=== PATIENT | female | born 1950 | race Caucasian/White ===

== ENCOUNTER 2024-09-11 12:58 | Inpatient (IN) | payer MEDICARE ==
[~2024-09-11] VITALS: Ht 172.7 cm; Wt 97.5 kg
[2024-09-11] VITALS (26 sets, daily range): BP systolic 83–142; BP diastolic 40–78; PULSE 58–93; RESP 15–25; TEMP 96.5–98.1; O2SAT 92–98
[2024-09-11 13:43] LABS: BASOPHILS % (AUTO) 0.1 % (0-1); EOSINOPHILS % (AUTO) 0 % (0-6); HEMATOCRIT 33.5 % (35.0-45.0); HEMOGLOBIN 11.4 g/dl (12.0-16.0); LYMPHOCYTES # (AUTO) 0.8 X10'3 (1.1-4.8); LYMPHOCYTES % (AUTO) 4.1 % (21-51); MEAN CORPUSCULAR HEMOGLOBIN 32.5 PG (27.0-31.0); MEAN CORPUSCULAR VOLUME 95.6 FL (78-98); MEAN PLATELET VOLUME 8.5 FL (7.4-10.4); MONOCYTES # (AUTO) 1.2 X10'3 (0-0.9); MONOCYTES % (AUTO) 5.9 % (2-12); NEUTROPHILS # (AUTO) 17.8 X10'3 (1.8-7.7); NEUTROPHILS % (AUTO) 89.9 % (42-75); PLATELET COUNT 94 X10'3 (140-440); RED CELL DISTRIBUTION WIDTH 12.6 % (11.5-14.5); WHITE BLOOD COUNT 19.9 X10'3 (4.5-11.0)
[2024-09-11 13:55] LABS: ALBUMIN 2.6 G/DL (3.4-5.0); ANION GAP 9 (8-16); BLOOD UREA NITROGEN 19 MG/DL (7-18); BUN/CREATININE RATIO 16.1 (10.0-20.0); CALCIUM 8.3 MG/DL (8.5-10.1); CHLORIDE 105 MMOL/L (99-107); CREATININE 1.18 MG/DL (0.40-0.90); GLUCOSE 89 MG/DL (70-104); LIPASE 18 U/L (16-77); MAGNESIUM 1.9 MG/DL (1.5-2.4); SODIUM 140 MMOL/L (135-145); TOTAL CARBON DIOXIDE 26.2 MMOL/L (24-32); eCRCL 43 ML/MIN; eGFR 45 ML/MIN
[2024-09-11] MEDS ORDERED: METO25TA6 PO (15:27)
[2024-09-11] MEDS ORDERED: TAMO20TA4 PO (15:27)
[2024-09-11] MEDS ORDERED: GABA-1405 PO (15:27)
[2024-09-11] MEDS ORDERED: ipratropium/albuterol 3ml nebule NEB PRN (16:05)
[2024-09-11] MEDS ORDERED: acetaminophen 325mg tablet PO PRN (16:05)
[2024-09-11] MEDS ORDERED: HYDROmorphone/PF 0.2 MG/ML SYRINGE IV PRN (16:05)
[2024-09-11] MEDS ORDERED: potassium Cl 40MEQ/1/2NS 520ml 520 ML IV PRN (16:05)
[2024-09-11] MEDS ORDERED: HYDROmorphone inj. 0.5 MG/0.5 ML DISP.SYRIN IV PRN (16:05)
[2024-09-11] MEDS ORDERED: bisacodyl 10mg suppository rectal RC PRN (16:05)
[2024-09-11] MEDS ORDERED: magnesium sulf-water 2g/50mL 50 ML IV PRN (16:05)
[2024-09-11] MEDS ORDERED: ondansetron/PF 4mg/2ml inj IV PRN (16:05)
[2024-09-11] MEDS ORDERED: albuterol 2.5 MG/3 ML nebule NEB PRN (16:05)
[2024-09-11] MEDS ORDERED: mag hydrox/Alum hydrox/simeth 30ml oral suspension PO PRN (16:05)
[2024-09-11] MEDS ORDERED: potassium Cl 20 mEq SR tablet PO PRN ×2 (16:05)
[2024-09-11] MEDS ORDERED: magnesium sulf-water 4G/100mL 100 ML IV PRN (16:05)
[2024-09-11] MEDS ORDERED: iohexol 300 MG/1 ML 50ml polymer ONE (16:27)
[2024-09-11] MEDS ORDERED: CHOL200059 PO (16:38)
[2024-09-11] MEDS ORDERED: UBID100C16 PO (16:38)
[2024-09-11] MEDS ORDERED: [UNRECOGNIZED DRUG - CODE] PO (16:38)
[2024-09-11] MEDS ORDERED: CIDE500T PO (16:38)
[2024-09-11] MEDS ORDERED: COLL1CAP PO (16:38)
[2024-09-11] MEDS ORDERED: ASPI-1265 PO (16:38)
[2024-09-11] MEDS ORDERED: DENO60DI SUBCUT (16:38)
[2024-09-11] MEDS ORDERED: GARL10002 PO (16:38)
[2024-09-11] MEDS ORDERED: OMEG1CAP61 PO (16:51)
[2024-09-11] MEDS ORDERED: LEVO330T6 PO (16:51)
[2024-09-11] MEDS ORDERED: meclizine PO (16:51)
[2024-09-11] MEDS ORDERED: TURM1TAB PO (16:51)
[2024-09-11] MEDS ORDERED: ZINC220T4 PO (16:51)
[2024-09-11] MEDS ORDERED: MAGN200T PO (16:51)
[2024-09-11] MEDS ORDERED: MULT-1249 PO (16:51)
[2024-09-11] MEDS ORDERED: ZINC100T2 PO (16:51)
[2024-09-11] MEDS ORDERED: VITA1CAP PO (16:51)
[2024-09-11] MEDS ORDERED: LYSI500T11 PO (16:51)
[2024-09-11] MEDS ORDERED: sevoflurane 250ml liquid IH ONE (16:55)
[2024-09-11] MEDS ORDERED: fentaNYL/PF 50MCG/1 ML 2ML syringe ONE (16:57)
[2024-09-11] MEDS ORDERED: midazolam 1 mg/ML 2ml injection ONE (16:57)
[2024-09-11] MEDS ORDERED: ondansetron/PF 4mg/2ml inj ONE (17:26)
[2024-09-11] MEDS ORDERED: dexamethasone sod phosphate 4mg/ml inj. ONE (17:26)
[2024-09-11] MEDS ORDERED: propofol inj 20 ML IV ONE (17:26)
[2024-09-11] MEDS: normal saline 1000ml 1,000 ML IV ONE (17:37)
[2024-09-11] MEDS: normal saline 1000ml 1,000 ML IV SCH (17:37)
[2024-09-11] MEDS: CefTRIAXone 2gm/D5W 50ml BAG 50 ML IV ONE (17:48)
[2024-09-11] MEDS: ringers solution, lacted 1,000 ML IV ONE (18:56)
[2024-09-11] MEDS: K and/or MAG REPLACEMENT MC SCH (20:00)
[2024-09-11] MEDS: docusate sod 100mg capsule PO SCH (21:18)
[2024-09-12] VITALS (8 sets, daily range): BP systolic 89–119; BP diastolic 47–94; PULSE 57–77; RESP 13–18; TEMP 97.2–98.4; O2SAT 94–97
[2024-09-12 06:56] LABS: BASOPHILS % (AUTO) 0 % (0-1); EOSINOPHILS % (AUTO) 0 % (0-6); HEMATOCRIT 31.8 % (35.0-45.0); HEMOGLOBIN 10.8 g/dl (12.0-16.0); LYMPHOCYTES # (AUTO) 0.7 X10'3 (1.1-4.8); LYMPHOCYTES % (AUTO) 4.2 % (21-51); MEAN CORPUSCULAR HEMOGLOBIN 32.4 PG (27.0-31.0); MEAN CORPUSCULAR VOLUME 95.2 FL (78-98); MEAN PLATELET VOLUME 8.6 FL (7.4-10.4); MONOCYTES # (AUTO) 0.6 X10'3 (0-0.9); MONOCYTES % (AUTO) 4.1 % (2-12); NEUTROPHILS # (AUTO) 14.4 X10'3 (1.8-7.7); NEUTROPHILS % (AUTO) 91.7 % (42-75); PLATELET COUNT 73 X10'3 (140-440); RED BLOOD COUNT 3.34 X10'6 (4.20-5.60); RED CELL DISTRIBUTION WIDTH 12.7 % (11.5-14.5); WHITE BLOOD COUNT 15.8 X10'3 (4.5-11.0)
[2024-09-12 07:05] LABS: ALANINE AMINOTRANSFERASE 54 U/L (12-78); ALBUMIN 2.3 G/DL (3.4-5.0); ALBUMIN/GLOBULIN RATIO 0.6 (1.1-1.5); ALKALINE PHOSPHATASE 79 IU/L (46-116); ANION GAP 7 (8-16); ASPARTATE AMINO TRANSFERASE 44 U/L (10-37); BILIRUBIN,TOTAL 0.4 MG/DL (0.1-1.0); BLOOD UREA NITROGEN 13 MG/DL (7-18); BUN/CREATININE RATIO 16.5 (10.0-20.0); CALCIUM 8.8 MG/DL (8.5-10.1); CHLORIDE 107 MMOL/L (99-107); CREATININE 0.79 MG/DL (0.40-0.90); GLUCOSE 151 MG/DL (70-104); MAGNESIUM 2.1 MG/DL (1.5-2.4); POTASSIUM 4.1 MMOL/L (3.5-5.1); SODIUM 139 MMOL/L (135-145); TOTAL CARBON DIOXIDE 25.5 MMOL/L (24-32); TOTAL PROTEIN 6.1 G/DL (6.4-8.2); eCRCL 64 ML/MIN; eGFR 71 ML/MIN
[2024-09-12 07:52] LABS: PLATELET ESTIMATE DECREASED; TOTAL CELLS COUNTED 100
[2024-09-12] MEDS: CefTRIAXone/D5W-Rocephin 1gm 50 ML IV SCH (08:33)
[2024-09-12] MEDS: metoprolol tartrate 25mg tablet PO SCH (09:29)
[2024-09-12] MEDS: tamoxifen 10mg tablet PO SCH (10:58)
[2024-09-12] MEDS ORDERED: LEVOCARNITINE PO SCH (20:00)
[2024-09-12] MEDS: ascorbic acid 500mg tablet PO SCH (20:02)
[2024-09-12] MEDS: OMEGA-3/DHA/EPA/FISH OIL 1 EACH CAPSULE.DR PO SCH (20:02)
[2024-09-13 06:00] VITALS: BP 115/61; PULSE 67; RESP 19; TEMP 97.9; O2SAT 97
[2024-09-13 06:13] LABS: BASOPHILS % (AUTO) 0.3 % (0-1); EOSINOPHILS # (AUTO) 0.2 X10'3 (0-0.9); EOSINOPHILS % (AUTO) 1.9 % (0-6); HEMATOCRIT 29.9 % (35.0-45.0); HEMOGLOBIN 10.1 g/dl (12.0-16.0); LYMPHOCYTES # (AUTO) 1.6 X10'3 (1.1-4.8); LYMPHOCYTES % (AUTO) 14.6 % (21-51); MEAN CORPUSCULAR HEMOGLOBIN 32.5 PG (27.0-31.0); MEAN CORPUSCULAR HGB CONC 33.7 g/dL (33.0-36.5); MEAN CORPUSCULAR VOLUME 96.3 FL (78-98); MEAN PLATELET VOLUME 8.9 FL (7.4-10.4); MONOCYTES # (AUTO) 0.7 X10'3 (0-0.9); MONOCYTES % (AUTO) 6.8 % (2-12); NEUTROPHILS # (AUTO) 8.3 X10'3 (1.8-7.7); NEUTROPHILS % (AUTO) 76.4 % (42-75); PLATELET COUNT 86 X10'3 (140-440); RED CELL DISTRIBUTION WIDTH 12.7 % (11.5-14.5); WHITE BLOOD COUNT 10.9 X10'3 (4.5-11.0)
[2024-09-13 06:38] LABS: ALANINE AMINOTRANSFERASE 45 U/L (12-78); ALBUMIN 2.2 G/DL (3.4-5.0); ALBUMIN/GLOBULIN RATIO 0.6 (1.1-1.5); ALKALINE PHOSPHATASE 78 IU/L (46-116); ANION GAP 4 (8-16); ASPARTATE AMINO TRANSFERASE 20 U/L (10-37); BILIRUBIN,TOTAL 0.2 MG/DL (0.1-1.0); BLOOD UREA NITROGEN 17 MG/DL (7-18); BUN/CREATININE RATIO 28.8 (10.0-20.0); CALCIUM 8.4 MG/DL (8.5-10.1); CHLORIDE 112 MMOL/L (99-107); CREATININE 0.59 MG/DL (0.40-0.90); GLUCOSE 98 MG/DL (70-104); MAGNESIUM 1.8 MG/DL (1.5-2.4); POTASSIUM 4.2 MMOL/L (3.5-5.1); SODIUM 143 MMOL/L (135-145); TOTAL CARBON DIOXIDE 27.3 MMOL/L (24-32); TOTAL PROTEIN 5.6 G/DL (6.4-8.2); eCRCL 86 ML/MIN; eGFR > 90 ML/MIN
[2024-09-13 08:00] VITALS: RESP 14; O2SAT 96
[2024-09-13] MEDS ORDERED: [UNRECOGNIZED DRUG - OTHER] PO SCH (08:00)
[2024-09-13] MEDS ORDERED: [UNRECOGNIZED DRUG - OTHER] PO SCH (08:00)
[2024-09-13] MEDS ORDERED: ASCORBIC ACID PO SCH (08:00)
[2024-09-13] MEDS ORDERED: non-formulary drug (Ubidecarenone (Coq-10) 30 MG) PO SCH (08:00)
[2024-09-13] MEDS ORDERED: BIOTIN PO SCH (08:00)
[2024-09-13] MEDS ORDERED: CIDER VINEGAR 500 MG PO SCH (08:00)
[2024-09-13] MEDS ORDERED: COLLAGEN PO SCH (08:00)
[2024-09-13] MEDS ORDERED: non-formulary drug (Garlic 1 CAP) PO SCH (08:00)
[2024-09-13] MEDS: meclizine 12.5mg tablet PO SCH (09:43)
[2024-09-13] MEDS: cholecalciferol (vitamin D3) 1,000 unit (25mcg) tablet PO SCH (09:43)
[2024-09-13] MEDS: multivitamins, therapeutics tablet PO SCH (09:44)
[2024-09-13] MEDS: aspirin 81mg tab.chew PO SCH (09:47)
[2024-09-13] MEDS: vitamin B comp w/Vit. C tab 1 TAB TABLET PO SCH (09:49)
[2024-09-13] MEDS: zinc sulfate 220mg capsule PO SCH (09:49)
[2024-09-13 10:00] VITALS: BP 126/77; PULSE 80; RESP 18; TEMP 98; O2SAT 97
[2024-09-13] MEDS ORDERED: SACC250C PO (10:50)
[2024-09-13] MEDS ORDERED: LEVO750T68 PO (10:50)
[2024-09-13 11:52] VITALS: RESP 14; O2SAT 96
== END 2024-09-13 15:25 | disposition home or self-care (01) | DRG 659 ==
LOC: ER 12:59 → ED HOLD 16:12 → ORTHO 4S 20:40
PROVIDERS: ADMIT Family Medicine; ATTEND Family Medicine
PROC: BT1D1ZZ Fluoroscopy of Right Kidney, Ureter and Bladder using Low Osmolar Contrast (ICD-10-PCS; 2024-09-11)
PROC: 0T768DZ Dilation of Right Ureter with Intraluminal Device, Via Natural or Artificial Opening Endoscopic (ICD-10-PCS; principal; 2024-09-11 16:55)
DX: N13.6 Pyonephrosis (principal); R65.11 Systemic inflammatory response syndrome (SIRS) of non-infectious origin with acute organ dysfunction; I47.10 Supraventricular tachycardia, unspecified; D69.6 Thrombocytopenia, unspecified; N17.0 Acute kidney failure with tubular necrosis; M81.0 Age-related osteoporosis without current pathological fracture; M48.02 Spinal stenosis, cervical region; Z79.899 Other long term (current) drug therapy; Z85.3 Personal history of malignant neoplasm of breast
CPT/HCPCS: 36415; 74430; 76000; 80048; 80053; 83605; 83690; 83735; 85007; 85025; 87040; 87081; 93005; 94760; 97161; 97530; 99285; A4615; A4618; C2617; G0378; J0696; J1100; J2003; J2250; J2405; J2704; J3010; J7030; J7040; J7120; J8597; Q9967

== ENCOUNTER 2024-10-22 10:13 | Day surgery (SDC) | payer MEDICARE ==
[2024-10-13 16:38] LABS: EOSINOPHILS # (AUTO) 0.2 X10'3 (0-0.9); EOSINOPHILS % (AUTO) 4.2 % (0-6); LYMPHOCYTES # (AUTO) 1.9 X10'3 (1.1-4.8); MEAN CORPUSCULAR HEMOGLOBIN 31.4 PG (27.0-31.0); MEAN CORPUSCULAR HGB CONC 33.2 g/dL (33.0-36.5); MEAN CORPUSCULAR VOLUME 94.6 FL (78-98); MEAN PLATELET VOLUME 8.3 FL (7.4-10.4); MONOCYTES # (AUTO) 0.6 X10'3 (0-0.9); MONOCYTES % (AUTO) 13.2 % (2-12); NEUTROPHILS # (AUTO) 1.8 X10'3 (1.8-7.7); NEUTROPHILS % (AUTO) 40.6 % (42-75); PRE OP HEMATOCRIT 36.6 % (35.0-45.0); PRE OP HEMOGLOBIN 12.1 g/dL (12.0-16.0); PRE OP PLATELET COUNT 159 X10'3 (140-440); PRE OP WHITE BLOOD COUNT 4.5 10'3 (4.8-10.8); RED BLOOD COUNT 3.87 X10'6 (4.20-5.60); RED CELL DISTRIBUTION WIDTH 12.9 % (11.5-14.5)
[2024-10-13 17:50] LABS: ALBUMIN 3.2 G/DL (3.4-5.0); ALBUMIN/GLOBULIN RATIO 0.9 (1.1-1.5); ALKALINE PHOSPHATASE 82 IU/L (46-116); BLOOD UREA NITROGEN 17 MG/DL (7-18); CALCIUM 8.7 MG/DL (8.5-10.1); CHLORIDE 107 MMOL/L (99-107); CREATININE 0.74 MG/DL (0.40-0.90); PRE OP ALT 24 U/L (30-65); PRE OP ANION GAP 7 (8-16); PRE OP AST 20 U/L (10-37); PRE OP BILIRUB, TOTAL 0.2 MG/DL (0.0-1.0); PRE OP GLUCOSE 78 MG/DL (70-104); PRE OP POTASSIUM 3.8 MMOL/L (3.4-5.1); PRE OP SODIUM 142 MMOL/L (135-145); TOTAL CARBON DIOXIDE 28.3 MMOL/L (24-32); TOTAL PROTEIN 6.7 G/DL (6.4-8.2); eGFR 77 ML/MIN
[2024-10-22] VITALS (11 sets, daily range): BP systolic 106–144; BP diastolic 62–81; PULSE 56–74; RESP 10–22; TEMP 97.8; O2SAT 92–100
[~2024-10-22] VITALS: Ht 172.7 cm; Wt 98.4 kg
[~2024-10-22 10:13] MED LIST: DOCUMENT DATE & TIME OF BETA-BLOCKER PO ONE; GABA-1405 PO; LYSI500T11 PO; METO25TA6 PO; TAMO20TA4 PO; ceFAZolin 2gm in dextrose, iso 50 ML IV ONE
[2024-10-22] MEDS: ringers solution, lacted 1,000 ML IV SCH (10:47)
[2024-10-22] MEDS: famotidine 20mg tablet PO ONE (10:48)
[2024-10-22] MEDS ORDERED: iohexol 300 MG/1 ML 50ml polymer ONE (11:57)
[2024-10-22] MEDS ORDERED: iohexol 350MG/ML 100ml bottle IV ONE (11:58)
[2024-10-22] MEDS ORDERED: labetalol 20mg/4ml (5mg/ml) syringe IV PRN (12:30)
[2024-10-22] MEDS ORDERED: meperidine/PF 25mg/ml syringe IV PRN (12:30)
[2024-10-22] MEDS ORDERED: morphine 4 MG/ML inj SYRINge IV PRN (12:30)
[2024-10-22] MEDS ORDERED: ondansetron/PF 4mg/2ml inj IV PRN (12:30)
[2024-10-22] MEDS ORDERED: acetaminophen 1,000mg/100ml IV 100 ML IV PRN (12:30)
[2024-10-22] MEDS ORDERED: ringers solution, lacted 1,000 ML IV SCH (12:30)
[2024-10-22] MEDS ORDERED: morphine 2 MG/ML inj. syringe IV PRN (12:30)
[2024-10-22] MEDS ORDERED: hydrALAZINE 20mg/ml inj. IV PRN (12:30)
[2024-10-22] MEDS ORDERED: fentaNYL/PF 50MCG/1 ML 2ML syringe IV PRN ×2 (12:30)
[2024-10-22] MEDS ORDERED: sevoflurane 250ml liquid IH ONE (12:46)
[2024-10-22] MEDS ORDERED: midazolam 1 mg/ML 2ml injection ONE (13:07)
[2024-10-22] MEDS ORDERED: LIDOcaine 2% (20mg/ml) 5ml vial ONE (13:11)
[2024-10-22] MEDS ORDERED: propofol inj 20 ML IV ONE (13:11)
[2024-10-22] MEDS ORDERED: fentaNYL/PF 50MCG/1 ML 2ML syringe ONE (13:20)
[2024-10-22] MEDS ORDERED: ondansetron/PF 4mg/2ml inj ONE (13:27)
[2024-10-22] MEDS ORDERED: dexamethasone sod phosphate 4mg/ml inj. ONE (13:27)
== END 2024-10-22 15:20 | disposition home or self-care (01) ==
LOC: PAS 10:13
PROVIDERS: ATTEND Urology
DX: Z46.6 Encounter for fitting and adjustment of urinary device (principal); N20.0 Calculus of kidney; Z88.1 Allergy status to other antibiotic agents; Z90.710 Acquired absence of both cervix and uterus; Z87.440 Personal history of urinary (tract) infections; Z79.899 Other long term (current) drug therapy; Z98.890 Other specified postprocedural states
CPT/HCPCS: 36415; 52310; 80053; 82948; 85025; 93005; A4618; A7000; C1769; J0690; J1100; J2003; J2250; J2405; J2704; J3010; J7030; J7120; Q9967; Z7506; Z7508; Z7512; Z7610